=== PATIENT | male | born 2000 | race Caucasian/White ===

== ENCOUNTER 2022-07-24 19:59 | Emergency (ER) | payer OTHER | END 2022-07-24 23:26 | disposition home or self-care (01) | LOC: FER 19:59 | DX: S61.412A Laceration without foreign body of left hand, initial encounter (principal); Z23 Encounter for immunization; W23.0XXA Caught, crushed, jammed, or pinched between moving objects, initial encounter; Y92.009 Unspecified place in unspecified non-institutional (private) residence as the place of occurrence of the external cause | CPT/HCPCS: 73130; 90471; 90715 ==

== ENCOUNTER 2022-07-25 13:12 | Emergency (ER) | payer OTHER | END 2022-07-25 14:49 | disposition home or self-care (01) | LOC: FER 13:12 | DX: S61.412A Laceration without foreign body of left hand, initial encounter (principal); Z28.310 Unvaccinated for COVID-19; V89.2XXA Person injured in unspecified motor-vehicle accident, traffic, initial encounter | CPT/HCPCS: 73140 ==